=== PATIENT | female | born 1960 | race Caucasian/White ===

== ENCOUNTER → 2016-12-14 | Outpatient (CLI) | payer MEDICARE, OTHER ==
[~2016-12-14] MED LIST: BACL10TA PO; ESOM10SU PO; GABA-585 PO; TRAZ50TA15 PO
--- NOTE | 2016-12-14 15:44 | KCIC ---
DATE: 12/14/2016 EXAM: MAMMO LINDA SCREENING BILATERAL HISTORY: Screening COMPARISON: No prior imaging of the right breast is available. Note is made of previous images of the left breast 05/31/2012 FINDINGS: Breast Density: FATTY The Breast Parenchyma is primarily fatty replaced. Breast parenchyma level density A.. There are small well-defined masses in the left breast likely reflecting intramammary lymph nodes. A dominant mass is not seen in either breast. No suspect calcifications are seen. Lymph nodes are noted in both axilla. IMPRESSION: Benign findings. BI-RADS CATEGORY: 2 BENIGN FINDING(S) RECOMMENDED FOLLOW-UP: 12M 12 MONTH FOLLOW-UP PQRS compliance statement: Patient information was entered into a reminder system with a target due date 12/14/2017 for the next mammogram. Mammography is a sensitive method for finding small breast cancers, but it does not detect them all and is not a substitute for careful clinical examination. A negative mammogram does not negate a clinically suspicious finding and should not result in delay in biopsying a clinically suspicious abnormality. "Our facility is accredited by the [employer] Mammography Program."
== END | disposition home or self-care (01) ==
LOC: KCIC MAMMO 14:00
PROVIDERS: ATTEND Family Medicine
DX: Z12.31 Encounter for screening mammogram for malignant neoplasm of breast (principal)
CPT/HCPCS: 77063; G0202; 77067

== ENCOUNTER 2019-12-06 23:20 | Emergency (ER) | payer MEDICARE, OTHER ==
[~2019-12-06] VITALS: Ht 172.7 cm; Wt 110.0 kg
[~2019-12-06 23:20] MED LIST changes: +TRAZ-118 PO; -TRAZ50TA15 PO
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
[2019-12-07] MEDS ORDERED: IV NORMAL SALINE 1000ML BAG 1,000 ML IV ONE
[2019-12-07 00:11] LABS: BASO # 0.1 x10^3/uL (0.0-0.2); BASO % 1 % (0-3); EOS # 0.2 x10^3/uL (0.0-0.7); EOS % 2 % (0-3); HEMATOCRIT 35.1 % (36.0-47.0); HEMOGLOBIN 11.5 g/dL (12.0-15.5); LYMPH # 1.8 x10^3/uL (1.0-4.8); LYMPH % 24 % (24-48); MEAN CORPUSCULAR HEMOGLOBIN 27 pg (25-35); MEAN CORPUSCULAR HGB CONC 33 g/dL (31-37); MEAN CORPUSCULAR VOLUME 83 fL (79-100); MONO % 13 % (0-9); NEUT # 4.7 x10^3/uL (1.8-7.7); NEUT % 61 % (31-73); PLATELET COUNT 219 x10^3/uL (140-400); RED BLOOD COUNT 4.26 x10^6/uL (3.50-5.40); RED CELL DISTRIBUTION WIDTH 16.6 % (11.5-14.5); WHITE BLOOD COUNT 7.7 x10^3/uL (4.0-11.0)
[2019-12-07 00:13] LABS: BILIRUBIN,URINE NEGATIVE (NEG); CLARITY,URINE CLEAR; COLOR,URINE YELLOW; NITRITE,URINE NEGATIVE (NEG); PH,URINE 6.5 (<5.0-8.0); PROTEIN,URINE NEGATIVE (NEG-TRACE)
[2019-12-07 00:24] LABS: BACTERIA,URINE FEW /HPF (0-FEW); RBC,URINE 0 /HPF (0-2); SQUAMOUS EPITHELIAL CELL,UR FEW /LPF
[2019-12-07 01:34] LABS: CALCIUM 8.8 mg/dL (8.5-10.1); CREATININE 0.8 mg/dL (0.6-1.0); GFR 73.7; POTASSIUM 4.1 mmol/L (3.5-5.1)
[2019-12-07 01:49] LABS: ALBUMIN/GLOBULIN RATIO 0.8 (1.0-1.7); MAGNESIUM 2.2 mg/dL (1.8-2.4); TOTAL BILIRUBIN 0.3 mg/dL (0.2-1.0); TOTAL PROTEIN 6.7 g/dL (6.4-8.2)
[2019-12-07 02:32] VITALS: BP 157/67
--- NOTE | 2019-12-07 07:28 | EKG ---
[facility] [address] [place] [address] Test Date: 2019-12-06 Test Time: 23:41:46 Pat Name: SEAN LEPE Department: Room: Gender: F Cena: : 1960 Requested By: NILESH PAGAN Order Number: [id number] Reading MD: Measurements Intervals [place] Rate: 53 P: HI: QRS: 35 QRSD: 80 T: 30 QT: 424 QTc: 404 Interpretive Statements IRREGULAR RHYTHM, NO P-WAVE FOUND OTHERWISE NORMAL ECG RI6.02 No previous ECG available for comparison
== END 2019-12-07 02:35 | disposition home or self-care (01) ==
LOC: ER 23:20
DX: R19.7 Diarrhea, unspecified (principal); R53.1 Weakness; R11.0 Nausea; J44.9 Chronic obstructive pulmonary disease, unspecified; R25.1 Tremor, unspecified; E11.9 Type 2 diabetes mellitus without complications; K21.9 Gastro-esophageal reflux disease without esophagitis; Z90.89 Acquired absence of other organs; Z90.710 Acquired absence of both cervix and uterus; Z79.01 Long term (current) use of anticoagulants; Z88.5 Allergy status to narcotic agent
CPT/HCPCS: 36415; 80053; 81001; 83735; 85025; 87493; 93005; 96360; 96361; 99285; J7030

== ENCOUNTER 2020-01-13 19:12 | Inpatient (IN) | payer MEDICARE, OTHER ==
[~2020-01-13] VITALS: Ht 175.3 cm; Wt 124.0 kg
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
--- NOTE | 2020-01-13 20:06 | RAD ---
Exam: Chest one view INDICATION: Chest pain TECHNIQUE: Frontal view of the chest Comparisons: 05/04/2013 FINDINGS: The cardiomediastinal silhouette and pulmonary vessels are within normal limits. The lung and pleural spaces are clear. IMPRESSION: No acute cardiopulmonary process. Electronically signed by: Silvia Hunter MD (01/13/2020 8:03 PM) JAMIE
[2020-01-13 20:55] LABS: BASO % 1 % (0-3); EOS # 0.2 x10^3/uL (0.0-0.7); EOS % 3 % (0-3); HEMATOCRIT 34.3 % (36.0-47.0); HEMOGLOBIN 11.5 g/dL (12.0-15.5); LYMPH # 2.1 x10^3/uL (1.0-4.8); LYMPH % 33 % (24-48); MEAN CORPUSCULAR HEMOGLOBIN 27 pg (25-35); MEAN CORPUSCULAR HGB CONC 33 g/dL (31-37); MEAN CORPUSCULAR VOLUME 81 fL (79-100); MONO # 0.7 x10^3/uL (0.0-1.1); MONO % 10 % (0-9); NEUT # 3.4 x10^3/uL (1.8-7.7); NEUT % 54 % (31-73); PLATELET COUNT 212 x10^3/uL (140-400); RED BLOOD COUNT 4.24 x10^6/uL (3.50-5.40); RED CELL DISTRIBUTION WIDTH 16.1 % (11.5-14.5); WHITE BLOOD COUNT 6.3 x10^3/uL (4.0-11.0)
[2020-01-13 21:04] LABS: CALCIUM 8.6 mg/dL (8.5-10.1); CREATININE 0.7 mg/dL (0.6-1.0); GFR 85.9; POTASSIUM 3.4 mmol/L (3.5-5.1)
[2020-01-13 21:07] LABS: PROTHROMBIN TIME PATIENT 13.7 SEC (11.7-14.0)
[2020-01-13 21:10] LABS: MAGNESIUM 1.8 mg/dL (1.8-2.4); TOTAL BILIRUBIN 0.3 mg/dL (0.2-1.0); TOTAL PROTEIN 6.1 g/dL (6.4-8.2)
[2020-01-13 21:24] LABS: CREATINE KINASE 58 U/L (26-192)
[2020-01-13 21:42] LABS: BILIRUBIN,URINE NEGATIVE (NEG); CLARITY,URINE CLEAR; COLOR,URINE YELLOW; NITRITE,URINE NEGATIVE (NEG); PROTEIN,URINE NEGATIVE (NEG-TRACE)
[2020-01-13 21:49] LABS: AMORPHOUS SEDIMENT,UR PRESENT /HPF; BACTERIA,URINE 0 /HPF (0-FEW); WBC,URINE TNTC /HPF (0-4)
[2020-01-13] MEDS ORDERED: ONDANSETRON PF 4 MG/2 ML VIAL. IVP PRN (23:30)
[2020-01-13] MEDS ORDERED: CALCIUM CARBONATE 500 MG TAB.CHEW PO PRN (23:30)
[2020-01-13] MEDS ORDERED: MAG HYDROX/ALUMINUM HYD/SIMETH 30 ML ORAL.SUSP PO PRN (23:30)
[2020-01-13] MEDS ORDERED: hydrOXYzine 25 MG TABLET PO PRN (23:30)
[2020-01-13] MEDS ORDERED: BISACODYL 10 MG SUPP.RECT. PR PRN (23:30)
[2020-01-13] MEDS ORDERED: MAGNESIUM HYDROXIDE 2,400 MG/30 ML ORAL.SUSP. PO PRN (23:30)
[2020-01-13] MEDS ORDERED: IBUPROFEN 400 MG TABLET. PO PRN (23:30)
[2020-01-13] MEDS ORDERED: ACETAMINOPHEN 325 MG TABLET. PO PRN (23:30)
[2020-01-13] MEDS ORDERED: HYDROmorphone 2 MG/ML VIAL IV PRN ×2 (23:30)
[2020-01-13] MEDS ORDERED: KETOROLAC 15 MG/ML VIAL. IV PRN (23:30)
[2020-01-13] MEDS ORDERED: PROCHLORPERAZINE 10 MG/2 ML VIAL. IVP PRN (23:30)
[2020-01-14 02:40] VITALS: BP 138/52
[2020-01-14] MEDS ORDERED: DEXTROSE 50% 25 GM / 50ML DISP.SYRIN. IV PRN (07:30)
[2020-01-14] MEDS ORDERED: POTASSIUM BICARB 10 MEQ EFFERVESCENT TABLET. PO ONE (07:30)
[2020-01-14] MEDS ORDERED: guaiFENesin DM 200MG/20MG 10 ML SYRUP PO PRN (07:30)
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
[2020-01-14 07:39] LABS: CHOLESTEROL/HDL RATIO 3.9
[2020-01-14 07:48] LABS: CALCIUM 8.6 mg/dL (8.5-10.1); CREATININE 0.7 mg/dL (0.6-1.0); GFR 85.9; MAGNESIUM 2.1 mg/dL (1.8-2.4); POTASSIUM 3.8 mmol/L (3.5-5.1)
[2020-01-14 07:49] VITALS: BP 120/44
[2020-01-14] MEDS: INSULIN LISPRO 300 UNITS/3 ML VIAL. SQ SCH ×3 (08:00→17:00)
[2020-01-14] MEDS: IPRATRPIUM/ALBUTEROL 0.5/2.5MG 3 ML NEBU. NEB SCH ×4 (08:00→20:27)
[2020-01-14] MEDS: GABAPENTIN 100 MG CAPSULE. PO SCH ×4 (10:44→21:38)
[2020-01-14] MEDS: PANTOPRAZOLE 40 MG TABLET.DR. PO SCH (10:45)
[2020-01-14] MEDS: ENOXAPARIN 40 MG/0.4 ML SYRINGE. SQ SCH (10:46)
[2020-01-14 10:49] VITALS: BP 122/50
--- NOTE | 2020-01-14 11:14 | PDOC2 ---
KRYSTA CORDERO RICE DRIER OPERATOR 01/14/20 1114: CARDIAC CONSULT DATE OF CONSULT Date of Consult DATE: 01/14/20 TIME: 11:00 REASON FOR CONSULT Reason for Consult: bradycardia, a-flutter REFERRING PHYSICIAN Referring Physician: Dr. Rdz SOURCE Source: Chart review, Patient HISTORY OF PRESENT ILLNESS HISTORY OF PRESENT ILLNESS This is a 59 yo female who presented secondary to generalized weakness, body aches, productive cough with yellow-green sputum, shortness of breath, and fevers. PAST MEDICAL HISTORY Past Medical History Liver disease (suspected cirrhosis) secondary to NAJERA Obesity s/p gastric bypass DM HLP HTN JOSE on CPAP MDD Bipolar GERD TBI Peripheral neuropathy OA Asthma Cardiovascular: HTN, Hyperlipidemia Pulmonary: Asthma, COPD, Other (JOSE) CENTRAL NERVOUS SYSTEM: Periperal neuropathy, Seizure, Other (TBI) GI: GERD Hepatobiliary: Cirrhosis (NAJERA) Psych: Anxiety, Depression, Other (boarderline personality disorde) Musculoskeletal: Osteoarthritis Endocrine: Diabetes PAST SURGICAL HISTORY Past Surgical History: Hysterectomy, Other (gastric bypass ) CURRENT MEDICATIONS CURRENT MEDICATIONS Current Medications Medications (Trade) Dose Ordered Sig/Jonel Route PRN Reason Start Time Stop Time Status Last Admin Dose Admin Gabapentin (Neurontin) 100 mg TID PO 01/14/20 09:00 01/14/20 10:44 Pantoprazole Sodium (Protonix) 40 mg DAILYAC PO 01/14/20 07:30 01/14/20 10:45 Potassium Bicarbonate (Potassium Effervescent Tablet) 40 meq 1X ONCE PO 01/14/20 07:30 01/14/20 07:31 DC 01/14/20 10:45 Enoxaparin Sodium (Lovenox 40mg Syringe) 40 mg Q24H SQ 01/14/20 09:00 01/14/20 10:46 ALLERGIES ALLERGIES: Coded Allergies: morphine (Verified Allergy, Intermediate, 09/24/14) sulfamethoxazole (Verified Allergy, Unknown, Rash, 01/14/20) trimethoprim (Verified Allergy, Unknown, Rash, 01/14/20) ROS Review of System 14 point ROS conducted with pertinent positives noted above in HPI PHYSICAL EXAM General: Alert, Cooperative, No acute distress, Other (oriented to self only) HEENT: Atraumatic Lungs: Clear to auscultation Heart: Regular rate (SR/SB) Abdomen: Soft, No tenderness, Other (obese ) Extremities: No edema Neuro: Normal speech, Sensation intact Psych/Mental Status: Other (flat affect ) MUSCULOSKELETAL: Osteoarthritic changes both hands VITALS/I&O VITALS/I&O: Vital Signs Date Time Temp Pulse Resp B/P (MAP) Pulse Ox O2 Delivery O2 Flow Rate FiO2 01/14/20 10:49 97.8 60 18 122/50 (74) 95 Room Air 97.8 01/14/20 07:49 94.0 I & O 01/13/20 01/13/20 01/14/20 15:00 23:00 07:00 Intake Total 0 ml Balance 0 ml LABS Lab: Laboratory Tests Test 01/13/20 20:40 01/13/20 21:30 01/14/20 00:02 01/14/20 00:20 White Blood Count 6.3 x10^3/uL (4.0-11.0) Red Blood Count 4.24 x10^6/uL (3.50-5.40) Hemoglobin 11.5 g/dL (12.0-15.5) L Hematocrit 34.3 % (36.0-47.0) L Mean Corpuscular Volume 81 fL (79-100) Mean Corpuscular Hemoglobin 27 pg (25-35) Mean Corpuscular Hemoglobin Concent 33 g/dL (31-37) Red Cell Distribution Width 16.1 % (11.5-14.5) H Platelet Count 212 x10^3/uL (140-400) Neutrophils (%) (Auto) 54 % (31-73) Lymphocytes (%) (Auto) 33 % (24-48) Monocytes (%) (Auto) 10 % (0-9) H Eosinophils (%) (Auto) 3 % (0-3) Basophils (%) (Auto) 1 % (0-3) Neutrophils # (Auto) 3.4 x10^3/uL (1.8-7.7) Lymphocytes # (Auto) 2.1 x10^3/uL (1.0-4.8) Monocytes # (Auto) 0.7 x10^3/uL (0.0-1.1) Eosinophils # (Auto) 0.2 x10^3/uL (0.0-0.7) Basophils # (Auto) 0.0 x10^3/uL (0.0-0.2) Prothrombin Time 13.7 SEC (11.7-14.0) Prothrombin Time INR 1.1 (0.8-1.1) Activated Partial Thromboplast Time 25 SEC (24-38) Sodium Level 140 mmol/L (136-145) Potassium Level 3.4 mmol/L (3.5-5.1) L Chloride Level 102 mmol/L (98-107) Carbon Dioxide Level 31 mmol/L (21-32) Anion Gap 7 (6-14) Blood Urea Nitrogen 3 mg/dL (7-20) L Creatinine 0.7 mg/dL (0.6-1.0) Estimated GFR (Cockcroft-Gault) 85.9 BUN/Creatinine Ratio 4 (6-20) L Glucose Level 104 mg/dL (70-99) H Calcium Level 8.6 mg/dL (8.5-10.1) Magnesium Level 1.8 mg/dL (1.8-2.4) Total Bilirubin 0.3 mg/dL (0.2-1.0) Aspartate Amino Transferase (AST) 22 U/L (15-37) Alanine Aminotransferase (ALT) 22 U/L (14-59) Alkaline Phosphatase 80 U/L (46-116) Creatine Kinase 58 U/L (26-192) Creatine Kinase MB (Mass) < 0.5 ng/mL (0.0-3.6) Creatine Kinase MB Relative Index % (0-4) Troponin I Quantitative 0.070 ng/mL (0.000-0.055) 0.063 ng/mL (0.000-0.055) IH-Aom-G-Type Natriuretic Peptide 391 pg/mL (0-124) H Total Protein 6.1 g/dL (6.4-8.2) L Albumin 3.0 g/dL (3.4-5.0) L Albumin/Globulin Ratio 1.0 (1.0-1.7) Lipase 64 U/L (73-393) L Urine Collection Type U cath Urine Color Yellow Urine Clarity Clear Urine pH 6.0 (<5.0-8.0) Urine Specific [place] 1.010 (1.000-1.030) Urine Protein Negative mg/dL (NEG-TRACE) Urine Glucose (UA) Negative mg/dL (NEG) Urine Ketones (Stick) Negative mg/dL (NEG) Urine Blood Moderate (NEG) Urine Nitrite Negative (NEG) Urine Bilirubin Negative (NEG) Urine Urobilinogen Dipstick 1.0 mg/dL (0.2 mg/dL) Urine Leukocyte Esterase Moderate (NEG) Urine RBC 11-20 /HPF (0-2) Urine WBC Tntc /HPF (0-4) Urine Squamous Epithelial Cells Mod /LPF Urine Amorphous Sediment Present /HPF Urine Bacteria 0 /HPF (0-FEW) Urine Mucus Slight /LPF Glucose (Fingerstick) 100 mg/dL (70-99) H Test 01/14/20 06:40 Sodium Level 137 mmol/L (136-145) Potassium Level 3.8 mmol/L (3.5-5.1) Chloride Level 101 mmol/L (98-107) Carbon Dioxide Level 28 mmol/L (21-32) Anion Gap 8 (6-14) Blood Urea Nitrogen 4 mg/dL (7-20) L Creatinine 0.7 mg/dL (0.6-1.0) Estimated GFR (Cockcroft-Gault) 85.9 Glucose Level 107 mg/dL (70-99) H Calcium Level 8.6 mg/dL (8.5-10.1) Magnesium Level 2.1 mg/dL (1.8-2.4) Troponin I Quantitative 0.064 ng/mL (0.000-0.055) Triglycerides Level 129 mg/dL (0-150) Cholesterol Level 144 mg/dL (0-200) LDL Cholesterol, Calculated 81 mg/dL (0-100) VLDL Cholesterol, Calculated 26 mg/dL (0-40) Non-HDL Cholesterol Calculated 107 mg/dL (0-129) HDL Cholesterol 37 mg/dL (40-60) L Cholesterol/HDL Ratio 3.9 Laboratory Tests 01/13/20 20:40 Laboratory Tests 01/13/20 20:40 01/14/20 06:40 EKG EKG Interpretation Summary The patient was monitored for 14 days to evaluate sinus bradycardia. During the recording the underlying rhythm was sinus, rate 37-144, average 59 bpm. There were no diary entries. There were rare PAC's and rare PVC's. There was an episode of sinus bradycardia with ventricular bigeminy. The sinus beats were at a rate of 27 bpm. The duration of this episode can't be determined. There was one 4-beat VT run, rate 150 bpm. There was a second VT run of 10 beats (4.6 seconds) rate variable but averaging 128 bpm. There were 19 runs of PAT, the longest 10 beats in duration, rate approximately 130 bpm. CONCLUSION: Mild sinus node dysfunction, but no symptoms. Episodes of paroxysmal atrial tachycardia that are asymptomatic. These are fairly non- specific findings that don't necessarily require treatment in the absence of symptoms. 12/12/19 - LONG-TERM BIZTALK DEVELOPER ECHOCARDIOGRAM ECHOCARDIOGRAM Study quality was limited due to suboptimal echo windows especially in the parasternal views. Definity contrast was given to define LV endocardium but valve structures were still seen in limited views only Normal LV size and systolic function. LVEF is 65%. The rhythm was ventricular bigeminy throughout the study. Thus LV diastolic function could not be assessed Normal right ventricular size and systolic function. The RV was seen only limited views Overall no significant functional valvular abnormalities were noted. Valve structures could only be seen in limited views. There appears to be mild mitral annular calcification Normal central venous pressure Unable assess pulmonary artery systolic pressure No pericardial effusion No significant change compared to study from 201811/28/19 - 2D + DOPPLER ECHO ASSESSMENT/PLAN ASSESSMENT/PLAN 1. Weakness. fatigue. 2. Arrhythmia; ? paroxysmal a-flutter noted on tele. Suspect this only appears to be a-flutter, due to underlying tremor, but patient is actually SR 3. Bradycardia; lowest 42. No pauses. Appropriate chronotropic response. Recent event monitor at noted above 4. Metabolic encephalopathy; presently confused. Baseline unknown, but does live at home alone 5. Hypertension; controlled 6. Hyperlipidemia; statin 7. Diabetes, II; as per IM 8. Mild troponin elevation; highest 0.07 9. JOSE 10. Liver disease suspected due to NAJERA 11. Obesity s/p gastric bypass 12. Anxiety, depression, personality disorder, h/o TBI pe review of [facility] records Recommendations TSH, Mg Avoid AV keegan blocking agents Supportive care Follow up with Dr. Radha LIZARRAGA upon discharge LUISA DE PAZ MD 01/14/20 194: CARDIAC CONSULT ASSESSMENT/PLAN ASSESSMENT/PLAN Pt. seen and examined. Agree with above URBAN SOCIOLOGIST note. Supportive care. Reviewed OSH records. KRYSTA CORDERO APRN Jan 14, 2020 11:14 LUISA DE PAZ MD Jan 14, 2020 19:42
[2020-01-14] MEDS: BUDESONIDE 0.5 MG/2 ML NEBU. NEB SCH ×2 (11:27→20:27)
[2020-01-14 14:32] VITALS: BP 136/75
--- NOTE | 2020-01-14 14:35 | NUR ---
SS following for discharge planning. SS reviewed pt chart and discussed with pt RN. Pt is from home and is currently on room air. Pt having weakness and confusion. PT/OT orders requested. Probable alf need. COVID19 test requested for placement. SS will continue to follow for discharge planning.
[2020-01-14] MEDS ORDERED: LACTULOSE 20 GM/30 ML SOLUTION. PO PRN (15:00)
[2020-01-14 15:03] LABS: VAL ACID 92 mcg/mL (50-100)
[2020-01-14] MEDS: OLANZapine 5 MG TABLET PO SCH (17:27)
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
[2020-01-14 19:16] VITALS: BP 128/53
[2020-01-14] MEDS: traZODone 50 MG TABLET. PO SCH ×2 (20:52→21:38)
[2020-01-14 22:10] VITALS: BP 157/63
[2020-01-15 03:49] LABS: BASO % 1 % (0-3); EOS # 0.1 x10^3/uL (0.0-0.7); EOS % 2 % (0-3); HEMATOCRIT 32.8 % (36.0-47.0); HEMOGLOBIN 10.7 g/dL (12.0-15.5); LYMPH # 2.1 x10^3/uL (1.0-4.8); LYMPH % 42 % (24-48); MEAN CORPUSCULAR HEMOGLOBIN 26 pg (25-35); MEAN CORPUSCULAR HGB CONC 33 g/dL (31-37); MEAN CORPUSCULAR VOLUME 81 fL (79-100); MONO # 0.3 x10^3/uL (0.0-1.1); MONO % 7 % (0-9); NEUT # 2.4 x10^3/uL (1.8-7.7); NEUT % 48 % (31-73); PLATELET COUNT 190 x10^3/uL (140-400); RED BLOOD COUNT 4.06 x10^6/uL (3.50-5.40); RED CELL DISTRIBUTION WIDTH 16.1 % (11.5-14.5)
[2020-01-15 03:56] VITALS: BP 132/58
[2020-01-15 03:59] LABS: CALCIUM 8.6 mg/dL (8.5-10.1); CREATININE 0.7 mg/dL (0.6-1.0); GFR 85.9; POTASSIUM 3.6 mmol/L (3.5-5.1)
--- NOTE | 2020-01-15 06:20 | EKG ---
[facility] [address] [place] [address] Test Date: 2020-01-13 Test Time: 20:01:21 Pat Name: SEAN LEPE Department: Room: Gender: F [employer]: : 1960 Requested By: NEIL SOW Order Number: [id number] Reading MD: Measurements Intervals [place] Rate: 50 P: 34 ND: 138 QRS: 32 QRSD: 86 T: 15 QT: 450 QTc: 413 Interpretive Statements SINUS RHYTHM NORMAL ECG RI6.02 Compared to ECG 01/13/2020 20:00:00 No significant changes
[2020-01-15 07:00] VITALS: BP 148/57
[2020-01-15] MEDS: BUDESONIDE 0.5 MG/2 ML NEBU. NEB SCH (07:39)
[2020-01-15] MEDS: IPRATRPIUM/ALBUTEROL 0.5/2.5MG 3 ML NEBU. NEB SCH ×3 (07:39→15:48)
--- NOTE | 2020-01-15 07:58 | PDOC ---
[employer] PROGRESS NOTE Date of Service DOS: DATE: 01/15/20 TIME: 07:56 Chief Complaint Chief Complaint A/P: Acute encephalopathy - likely metabolic from recent psych medication change. Will check depakote level, consult psych, monitor for hypoglycemia Elevated troponin - likely demand ischemia, will consult cardiology, trend troponins Cough - mild COPD exacerbation, nebs Weakness - will have PT to see PTSD with Anxiety and possible dx of bipolar disorder - check depakote level, reconcile meds with [facility] including depakote and zyprexa Asthma with COPD - nebulizers Liver disease (suspected cirrhosis) secondary to NAJERA - norah give lactulose, check ammonia level Obesity s/p gastric bypass - will check B12, D DM2 - sliding scale HLD - cont statin HTN - cont home meds JOSE on CPAP - will get home device GERD - PPI h/o TBI - per [facility] records, unknown mental baseline Peripheral neuropathy - gabapentin OA - avoid narcotics Vitamin D deficiency - on oral replacement FEN - ADA diet PPX - lovenox FULL CODE Dispo - inpatient History of Present Illness History of Present Illness Ms Soler is a 59 yo F w/ PMHx Anxiety, COPD, Diabetes-Type II, GERD, Seizure who presents to the emergency department with complaints of generalized weakness, fatigue, and body aches for the last few days with a productive cough with yellow-green sputum, shortness of breath, and a tactile fever. She denies any recent travel, she denies any known contact with COVID-19. Patient states she did not use a thermometer to measure her temperature. She denies any rash, dizziness, headache, abdominal pain, nausea, vomiting, diarrhea, sore throat, wheezing, or edema. The patient reports she has noticed some increased urinary frequency but denies any dysuria, hematuria, or low back pain. She currently complains of generalized pain that she rated 9 out of 10 on the pain scale, she denies any alleviating or exacerbating factors. Lab significant for WBC 6.3, Hb 11.5, platelets 212, INR 1.1, Na 143.4 BUN 3 CR 0.7 glucose 104 albumin 3 BNP 391 troponin 0.07 CXR - no acute abnormalities EKG - NSR x3 EKG, sinus bradycardia, normal axis, no ST segment abnormalities or TWI Feeling overall improved. Depakote level therapeutic. She is oriented to person and location, believes the year is 1999, but does know that she is 59 years old and knows her birthdate and is eventually able to mathematically calculate that the year is 2019 and is accurate about the current president. No CP or SOB. Vitals/I&O Vitals/I&O: Vital Signs Date Time Temp Pulse Resp B/P (MAP) Pulse Ox O2 Delivery O2 Flow Rate FiO2 01/15/20 07:41 96 Room Air 01/15/20 03:56 97.7 50 16 132/58 (82) 2.0 97.7 I & O 01/14/20 01/14/20 01/15/20 15:00 23:00 07:00 Intake Total 600 ml 2800 ml 440 ml Output Total 1500 ml 350 ml Balance 600 ml 1300 ml 90 ml Physical Exam General: Alert, Cooperative, No acute distress, Other (oriented to self only) Heart: Regular rate (SR/SB) Abdomen: Soft, No tenderness, Other (obese ) Extremities: No edema Skin: No rashes, No breakdown, No significant lesion Labs Labs: Laboratory Tests Test 01/14/20 11:04 01/14/20 12:40 01/14/20 16:45 01/14/20 20:12 Glucose (Fingerstick) 218 mg/dL (70-99) 94 mg/dL (70-99) 156 mg/dL (70-99) Troponin I Quantitative 0.072 ng/mL (0.000-0.055) Vitamin B12 Level 436 pg/mL (247-911) Procalcitonin < 0.10 ng/mL (0.00-0.10) Thyroid Stimulating Hormone (TSH) 1.643 uIU/mL (0.358-3.74) Valproic Acid (Depakene) Level 92 mcg/mL (50-100) Valproic Acid Last Dose Date 01/13/20 Valproic Acid Last Dose Time 2100 Test 01/15/20 03:30 White Blood Count 5.0 x10^3/uL (4.0-11.0) Red Blood Count 4.06 x10^6/uL (3.50-5.40) Hemoglobin 10.7 g/dL (12.0-15.5) Hematocrit 32.8 % (36.0-47.0) Mean Corpuscular Volume 81 fL (79-100) Mean Corpuscular Hemoglobin 26 pg (25-35) Mean Corpuscular Hemoglobin Concent 33 g/dL (31-37) Red Cell Distribution Width 16.1 % (11.5-14.5) Platelet Count 190 x10^3/uL (140-400) Neutrophils (%) (Auto) 48 % (31-73) Lymphocytes (%) (Auto) 42 % (24-48) Monocytes (%) (Auto) 7 % (0-9) Eosinophils (%) (Auto) 2 % (0-3) Basophils (%) (Auto) 1 % (0-3) Neutrophils # (Auto) 2.4 x10^3/uL (1.8-7.7) Lymphocytes # (Auto) 2.1 x10^3/uL (1.0-4.8) Monocytes # (Auto) 0.3 x10^3/uL (0.0-1.1) Eosinophils # (Auto) 0.1 x10^3/uL (0.0-0.7) Basophils # (Auto) 0.0 x10^3/uL (0.0-0.2) Sodium Level 137 mmol/L (136-145) Potassium Level 3.6 mmol/L (3.5-5.1) Chloride Level 100 mmol/L (98-107) Carbon Dioxide Level 32 mmol/L (21-32) Anion Gap 5 (6-14) Blood Urea Nitrogen 6 mg/dL (7-20) Creatinine 0.7 mg/dL (0.6-1.0) Estimated GFR (Cockcroft-Gault) 85.9 Glucose Level 103 mg/dL (70-99) Calcium Level 8.6 mg/dL (8.5-10.1) Ammonia 13 mcmol/L (11-34) 25-Hydroxy Vitamin D Total 18.1 ng/mL (30-100) Assessment and Plan Assessmemt and Plan Problems Medical Problems: (1) Diarrhea Status: Acute Comment Review of Relevant I have reviewed the following items lashay (where applicable) has been applied. Medications: Current Medications Medications (Trade) Dose Ordered Sig/Jonel Route PRN Reason Start Time Stop Time Status Last Admin Dose Admin Gabapentin (Neurontin) 100 mg TID PO 01/14/20 09:00 01/14/20 21:38 Trazodone HCl (Desyrel) 50 mg QHS PO 01/14/20 21:00 01/14/20 21:38 Insulin Human Lispro (HumaLOG) 0-7 UNITS TIDWMEALS SQ 01/14/20 08:00 01/14/20 13:07 Albuterol/ Ipratropium (Duoneb) 3 ml RTQID NEB 01/14/20 08:00 01/15/20 07:39 Budesonide (Pulmicort) 0.5 mg RTBID NEB 01/14/20 08:00 01/15/20 07:39 Enoxaparin Sodium (Lovenox 40mg Syringe) 40 mg Q24H SQ 01/14/20 09:00 01/14/20 10:46 Olanzapine (ZyPREXA) 5 mg DAILY PO 01/14/20 17:15 01/14/20 17:27 Justifications for Admission Other Justification ACS MICHAEL RAI MD Jan 15, 2020 07:57
[2020-01-15] MEDS ORDERED: POTASSIUM CHLORIDE 20 MEQ TABLET.ER. PO ONE (08:00)
[2020-01-15] MEDS: INSULIN LISPRO 300 UNITS/3 ML VIAL. SQ SCH ×2 (08:00→12:41)
[2020-01-15] MEDS: OLANZapine 5 MG TABLET PO SCH (08:47)
[2020-01-15] MEDS: GABAPENTIN 100 MG CAPSULE. PO SCH ×2 (08:47→12:36)
[2020-01-15] MEDS: PANTOPRAZOLE 40 MG TABLET.DR. PO SCH (08:47)
[2020-01-15] MEDS: ENOXAPARIN 40 MG/0.4 ML SYRINGE. SQ SCH (08:57)
[2020-01-15] MEDS ORDERED: CHOLECALCIFEROL (VITAMIN D3) 5,000 UNIT CAPSULE PO SCH (09:00)
[2020-01-15 11:00] VITALS: BP 144/72
--- NOTE | 2020-01-15 14:31 | PDOC ---
CLOVIS PEDRO REFINING MACHINE OPERATOR 01/15/20 1431: CARDIO Progress Notes Date and Time Date of Service 01/15/2020 Time of Evaluation 1425 Subjective Subjective: No Chest Pain, No shortness of breath, No Palpitations Vitals Vitals Vital Signs Date Time Temp Pulse Resp B/P (MAP) Pulse Ox O2 Delivery O2 Flow Rate FiO2 01/15/20 11:30 Room Air 01/15/20 11:00 97.5 71 16 144/72 (96) 94 97.5 01/15/20 03:56 2.0 Weight Weight [ ] Input and Output Intake and Output Intake and Output 01/15/20 07:00 Intake Total 3840 ml Output Total 1850 ml Balance 1990 ml Intake Oral 3840 ml Output Urine Total 1850 ml # Bowel Movements 2 Laboratory Labs Laboratory Tests Test 01/14/20 16:45 01/14/20 20:12 01/15/20 03:30 01/15/20 08:16 Glucose (Fingerstick) 94 mg/dL (70-99) 156 mg/dL (70-99) 120 mg/dL (70-99) White Blood Count 5.0 x10^3/uL (4.0-11.0) Red Blood Count 4.06 x10^6/uL (3.50-5.40) Hemoglobin 10.7 g/dL (12.0-15.5) Hematocrit 32.8 % (36.0-47.0) Mean Corpuscular Volume 81 fL (79-100) Mean Corpuscular Hemoglobin 26 pg (25-35) Mean Corpuscular Hemoglobin Concent 33 g/dL (31-37) Red Cell Distribution Width 16.1 % (11.5-14.5) Platelet Count 190 x10^3/uL (140-400) Neutrophils (%) (Auto) 48 % (31-73) Lymphocytes (%) (Auto) 42 % (24-48) Monocytes (%) (Auto) 7 % (0-9) Eosinophils (%) (Auto) 2 % (0-3) Basophils (%) (Auto) 1 % (0-3) Neutrophils # (Auto) 2.4 x10^3/uL (1.8-7.7) Lymphocytes # (Auto) 2.1 x10^3/uL (1.0-4.8) Monocytes # (Auto) 0.3 x10^3/uL (0.0-1.1) Eosinophils # (Auto) 0.1 x10^3/uL (0.0-0.7) Basophils # (Auto) 0.0 x10^3/uL (0.0-0.2) Sodium Level 137 mmol/L (136-145) Potassium Level 3.6 mmol/L (3.5-5.1) Chloride Level 100 mmol/L (98-107) Carbon Dioxide Level 32 mmol/L (21-32) Anion Gap 5 (6-14) Blood Urea Nitrogen 6 mg/dL (7-20) Creatinine 0.7 mg/dL (0.6-1.0) Estimated GFR (Cockcroft-Gault) 85.9 Glucose Level 103 mg/dL (70-99) Calcium Level 8.6 mg/dL (8.5-10.1) Ammonia 13 mcmol/L (11-34) 25-Hydroxy Vitamin D Total 18.1 ng/mL (30-100) Test 01/15/20 12:05 Glucose (Fingerstick) 189 mg/dL (70-99) Physical Exam HEENT: Neck Supple W Full Motion Chest: Symmetric LUNGS: Other (diminished bases) Heart: S1S2, RRR (SR/SB) Abdomen: Soft N/T Extremities: No Calf Tenderness Neurology: alert, oriented, follow commands Assessment Assessment 1. Weakness. fatigue. 2. Arrhythmia: no flutter likely artifact from known tremors 3. Bradycardia; lowest 42. No pauses. Appropriate chronotropic response. Recent event monitor at 4. Metabolic encephalopathy; presently confused. Baseline unknown, but does live at home alone 5. Hypertension; controlled 6. Hyperlipidemia; statin 7. Diabetes, II; as per IM 8. Mild troponin elevation; highest 0.07, suspect demand mediated 9. JOSE 10. Liver disease suspected due to NAJERA 11. Obesity s/p gastric bypass 12. Anxiety, depression, personality disorder, h/o TBI per review of records Recommendations No AV keegan blocking agents Supportive care Follow up with Dr. Radah LIZARRAGA upon discharge Justicifation of Admission Dx: Justifications for Admission: Justification of Admission Dx: N/A LUISA DE PAZ MD 01/15/20 1144: CARDIO Progress Notes Plan Plan The patient was seen and interviewed as well as examined at the bedside. The chart was reviewed. The case was discussed. Agree with the plan of care. CLOVIS PEDRO APRN Jan 15, 2020 14:31 LUISA DE PAZ MD Jan 15, 2020 17:44
--- NOTE | 2020-01-15 15:43 | NUR ---
SS following up with discharge planning. SS reviewed pt chart and discussed with pt RN. Pt is currently on room air. PT/OT recommended home with home healthcare. Pt has immigration case manager at [facility]. SS will continue to follow for discharge planning.
[2020-01-15] MEDS ORDERED: DICL150D4 TP (15:57)
[2020-01-15] MEDS ORDERED: ALBU2.5V8 IH (15:57)
[2020-01-15] MEDS ORDERED: PRAM0.255 PO ×2 (15:57)
[2020-01-15] MEDS ORDERED: VALB40CA PO (15:57)
[2020-01-15] MEDS ORDERED: BISM262T9 PO (15:57)
[2020-01-15] MEDS ORDERED: ARIP10TA9 PO (15:57)
[2020-01-15] MEDS ORDERED: METO50TA4 PO (15:57)
[2020-01-15] MEDS ORDERED: GABA600T7 PO (15:57)
[2020-01-15] MEDS ORDERED: PANT20TA2 PO (15:57)
[2020-01-15] MEDS ORDERED: ASPI-630 PO (15:57)
[2020-01-15] MEDS ORDERED: FLUT16SP NS (15:57)
[2020-01-15] MEDS ORDERED: HYDR-2761 PO (15:57)
[2020-01-15] MEDS ORDERED: TRIH5TAB2 PO (15:57)
[2020-01-15] MEDS ORDERED: FLUO40CA2 PO (15:57)
[2020-01-15] MEDS ORDERED: CLONAZEPAM1 MG PO (15:57)
[2020-01-15] MEDS ORDERED: LOPE-101 PO (15:57)
[2020-01-15] MEDS ORDERED: INSU100V37 SQ (15:57)
[2020-01-15] MEDS ORDERED: DIVA-53 PO (15:57)
[2020-01-15] MEDS ORDERED: TRAZ-118 PO (15:57)
[2020-01-15] MEDS ORDERED: DICL100G54 TP ×2 (15:57)
[2020-01-15] MEDS ORDERED: HALO100V IM (15:58)
[2020-01-15] MEDS ORDERED: LOPE2TAB27 PO (15:58)
[2020-01-15] MEDS ORDERED: ONDA4TAB12 PO (15:58)
[2020-01-15] MEDS ORDERED: CHOL500051 PO (16:01)
--- NOTE | 2020-01-15 16:03 | SNU/HH DC ---
DISCHARGE WITH HOME HEALTH DISCHARGE INFORMATION: Discharge Date: Jan 15, 2020 Final Diagnosis: Problems Medical Problems: (1) Diarrhea Status: Acute Condition on Discharge: Stable CODE STATUS: Code Status: Full HOME HEALTH: Face to Face: I certify this patient is under my care and that I, or a nurse practitioner or physician's showroom sales assistant working with me, had a face to face encounter that meets the physician face to face encounter requirements with this patient on 01/15/2020. Medical Complications: COPD, DM, HTN Senior Living For: Assess & Educate Safety, Medication Management RN For Eval/Treatment: Yes Physical Therapy For: Evalulation/Treatment Occupational Therapy For: Evaluation/Treatment Home Health Aide For: Self-care FUEL CONVERSION TECHNICIAN For: Community Resources Pt Meets Homebound Status: Unsteady balance w/ amb,, Poor cognition, Psychological condition POST DISCHARGE ORDERS: Activity Instructions for Disc: Resume previous activity Weight Bearing Status after Di: Full weight bearing DIET AFTER DISCHARGE: Cardiac CHECKS AFTER DISCHARGE: Checks after discharge: Check blood press - daily, Check blood sugar, ac/hs, Check your Temp as needed CERTIFICATION STATEMENT: Certification Statement: Certification Statement: Based on the above finding, I certify that this patient is confined to the home and needs intermittent prison care, physical therapy and/or speech therapy, or continues to need occupational therapy.~ This patient is under my care, and I have initiated the establishment of the plan of care.~ This patient will be followed by myself or a community physician who will periodically review the plan of care. Home Meds Active Scripts Cholecalciferol (Vitamin D3) (Vitamin D3) 125 Mcg Capsule, 5000 UNIT PO DAILY for Vitamin D deficiency for 90 Days, #90 CAP Prov:MICHAEL RAI MD 01/15/20 Reported Medications Haloperidol Decanoate (HALOPERIDOL DECANOATE) 100 Mg/1 Ml Vial, 150 MG IM Q4WK for mood stabilizer, EACH 01/15/20 Ondansetron (ONDANSETRON ODT) 4 Mg Tab.rapdis, 1 TAB PO PRN Q4-6HRS PRN for NAUSEA, #16 TAB 01/15/20 Loperamide Hcl (LOPERAMIDE) 2 Mg Tablet, 1 TAB PO PRN Q2HR PRN for loose stools for 30 Days, TAB 0 Refills 01/15/20 Hydrocodone Bit/Acetaminophen (HYDROCODONE-APAP 5-325 ) 1 Tab Tablet, 1 TAB PO PRN Q6HRS PRN for PAIN, TAB 0 Refills 01/14/20 Diclofenac Sodium (VOLTAREN) 100 Gm Gel..gram., 4 GM TP PRN QHS PRN for PAIN for 30 Days, #1 EACH 0 Refills apply to affected area(s) 20 Diclofenac Sodium (Diclofenac Sodium) 150 Ml Drops, 4 ROSEMARY TP PRN QHS PRN for PAIN for 30 Days, #150 ML 0 Refills 20 Albuterol Sulfate (PROAIR HFA INHALER) 8.5 Gm Hfa.aer.ad, 2 PUFF IH PRN Q6HRS PRN for wheezing for 21 Days, #1 INHALER 0 Refills 1020/20 Diclofenac Sodium (VOLTAREN) 100 Gm Gel..gram., 1 GM TP PRN DAILY PRN for PAIN for 30 Days, #1 EACH 0 Refills apply to affected area(s) 01/15/20 Valbenazine Tosylate (Ingrezza) 40 Mg Capsule, 1 CAP PO DAILY for VMAT2 for 30 Days, #30 CAP 0 Refills 01/14/20 Trihexyphenidyl Hcl (TRIHEXYPHENIDYL HCL) 5 Mg Tablet, 1 TAB PO BID for d, #60 TAB 1 Refill 1020/20 Trazodone Hcl (TRAZODONE HCL) 50 Mg Tablet, 1 TAB PO QHS for insomnia, #30 TAB 1 Refill 1020/20 Metoprolol Succinate (Toprol XL) 50 Mg Tab.er.24h, 25 MG PO DAILY for FOR HYPERTENSION, TAB.SR 1020/20 Pramipexole Di-Hcl (MIRAPEX) 0.25 Mg Tablet, 2 TAB PO QHS for tremors, #90 TAB 1 Refill 1020/20 Pramipexole Di-Hcl (MIRAPEX) 0.25 Mg Tablet, 2 TAB PO QEVNG for parkinsons/tremors, #90 TAB 1 Refill 1020/20 Bismuth Subsalicylate (PEPTO-BISMOL) 262 Mg Tab.chew, 262 MG PO PRN Q4HRS PRN for diarrhea/nausea, TAB.CHEW 1020/20 Pantoprazole Sodium (PROTONIX) 20 Mg Tablet.dr, 2 TAB PO DAILY for GERD, #30 TAB 01/15/20 Insulin Degludec (Tresiba) 100 Unit/1 Ml Vial, 8 UNIT SQ DAILY for DM, EACH 01/15/20 Loperamide HCl (Imodium A-D) 2 Mg Capsule, 2 MG PO PRN DAILY PRN for loose stools, CAP 01/15/20 Gabapentin (GABAPENTIN) 600 Mg Tablet, 600 MG PO TID for NEUROGENIC PAIN, TAB 01/15/20 Fluticasone Propionate (FLUTICASONE PROPIONATE NASAL SPRAY) 16 Gm [place].susp, 2 SPRAY NS DAILY for congestion, #1 INHALER 11 Refills 01/15/20 Fluoxetine Hcl (FLUOXETINE HCL) 40 Mg Capsule, 1 CAP PO DAILYWBKFT for mood stablizer, #30 CAP 2 Refills 01/15/20 Divalproex Sodium (DIVALPROEX SODIUM) 500 Mg Tablet.dr, 3 TAB PO QHS for mood stablizer, #60 TAB 1 Refill 01/15/20 Clonazepam (CLONAZEPAM) 1 Mg Tablet, 0.5 MG PO QHS for FOR ANXIETY, TAB 01/15/20 Aspirin (ASPIRIN) 81 Mg Tab.chew, 1 TAB PO DAILY for prophylaxis , #30 TAB 3 Refills 01/15/20 Aripiprazole (ABILIFY) 10 Mg Tablet, 1 TAB PO QHS for bipolar for 30 Days, #30 TAB 0 Refills 01/15/20 Discontinued Reported Medications Trazodone Hcl (TRAZODONE HCL) 50 Mg Tablet, 50 MG PO 05/04/13 Gabapentin (GABAPENTIN ) 100 Mg Capsule, 100 MG PO 05/04/13 Esomeprazole Magnesium (NEXIUM PACKET) 10 Mg Suspdr.pkt, 10 MG PO 05/04/13 Baclofen (BACLOFEN) 10 Mg Tablet, 10 MG PO 05/04/13 MICHAEL RAI MD Jan 15, 2020 16:03
--- NOTE | 2020-01-15 16:07 | PDOC3 ---
Discharge Summary Visit Information Date of Admission: Jan 14, 2020 Date of Discharge: Jan 15, 2020 Admitting Diagnosis: Weakness Final Diagnosis Problems Medical Problems: (1) Diarrhea Status: Acute Brief Hospital Course Allergies Allergies Coded Allergies Type Severity Reaction Last Updated Verified morphine Allergy Intermediate 09/24/14 Yes sulfamethoxazole Allergy Unknown Rash 01/14/20 Yes trimethoprim Allergy Unknown Rash 01/14/20 Yes Vital Signs Vital Signs Date Time Temp Pulse Resp B/P (MAP) Pulse Ox O2 Delivery O2 Flow Rate FiO2 01/15/20 15:50 91 Room Air 01/15/20 11:00 97.5 71 16 144/72 (96) 97.5 01/15/20 03:56 2.0 Lab Results Laboratory Tests Test 01/13/20 20:40 01/13/20 21:30 01/14/20 00:02 01/14/20 00:20 White Blood Count 6.3 x10^3/uL (4.0-11.0) Red Blood Count 4.24 x10^6/uL (3.50-5.40) Hemoglobin 11.5 g/dL (12.0-15.5) Hematocrit 34.3 % (36.0-47.0) Mean Corpuscular Volume 81 fL (79-100) Mean Corpuscular Hemoglobin 27 pg (25-35) Mean Corpuscular Hemoglobin Concent 33 g/dL (31-37) Red Cell Distribution Width 16.1 % (11.5-14.5) Platelet Count 212 x10^3/uL (140-400) Neutrophils (%) (Auto) 54 % (31-73) Lymphocytes (%) (Auto) 33 % (24-48) Monocytes (%) (Auto) 10 % (0-9) Eosinophils (%) (Auto) 3 % (0-3) Basophils (%) (Auto) 1 % (0-3) Neutrophils # (Auto) 3.4 x10^3/uL (1.8-7.7) Lymphocytes # (Auto) 2.1 x10^3/uL (1.0-4.8) Monocytes # (Auto) 0.7 x10^3/uL (0.0-1.1) Eosinophils # (Auto) 0.2 x10^3/uL (0.0-0.7) Basophils # (Auto) 0.0 x10^3/uL (0.0-0.2) Prothrombin Time 13.7 SEC (11.7-14.0) Prothromb Time International Ratio 1.1 (0.8-1.1) Activated Partial Thromboplast Time 25 SEC (24-38) Sodium Level 140 mmol/L (136-145) Potassium Level 3.4 mmol/L (3.5-5.1) Chloride Level 102 mmol/L (98-107) Carbon Dioxide Level 31 mmol/L (21-32) Anion Gap 7 (6-14) Blood Urea Nitrogen 3 mg/dL (7-20) Creatinine 0.7 mg/dL (0.6-1.0) Estimated GFR (Cockcroft-Gault) 85.9 BUN/Creatinine Ratio 4 (6-20) Glucose Level 104 mg/dL (70-99) Calcium Level 8.6 mg/dL (8.5-10.1) Magnesium Level 1.8 mg/dL (1.8-2.4) Total Bilirubin 0.3 mg/dL (0.2-1.0) Aspartate Amino Transf (AST/SGOT) 22 U/L (15-37) Alanine Aminotransferase (ALT/SGPT) 22 U/L (14-59) Alkaline Phosphatase 80 U/L (46-116) Creatine Kinase 58 U/L (26-192) Creatine Kinase MB (Mass) < 0.5 ng/mL (0.0-3.6) Creatine Kinase MB Relative Index % (0-4) Troponin I Quantitative 0.070 ng/mL (0.000-0.055) 0.063 ng/mL (0.000-0.055) AK-Jcw-Z-Type Natriuretic Peptide 391 pg/mL (0-124) Total Protein 6.1 g/dL (6.4-8.2) Albumin 3.0 g/dL (3.4-5.0) Albumin/Globulin Ratio 1.0 (1.0-1.7) Lipase 64 U/L (73-393) Urine Collection Type U cath Urine Color Yellow Urine Clarity Clear Urine pH 6.0 (<5.0-8.0) Urine Specific [place] 1.010 (1.000-1.030) Urine Protein Negative mg/dL (NEG-TRACE) Urine Glucose (UA) Negative mg/dL (NEG) Urine Ketones (Stick) Negative mg/dL (NEG) Urine Blood Moderate (NEG) Urine Nitrite Negative (NEG) Urine Bilirubin Negative (NEG) Urine Urobilinogen Dipstick 1.0 mg/dL (0.2 mg/dL) Urine Leukocyte Esterase Moderate (NEG) Urine RBC 11-20 /HPF (0-2) Urine WBC Tntc /HPF (0-4) Urine Squamous Epithelial Cells Mod /LPF Urine Amorphous Sediment Present /HPF Urine Bacteria 0 /HPF (0-FEW) Urine Mucus Slight /LPF Glucose (Fingerstick) 100 mg/dL (70-99) Test 01/14/20 06:40 01/14/20 11:04 01/14/20 12:40 01/14/20 16:45 Sodium Level 137 mmol/L (136-145) Potassium Level 3.8 mmol/L (3.5-5.1) Chloride Level 101 mmol/L (98-107) Carbon Dioxide Level 28 mmol/L (21-32) Anion Gap 8 (6-14) Blood Urea Nitrogen 4 mg/dL (7-20) Creatinine 0.7 mg/dL (0.6-1.0) Estimated GFR (Cockcroft-Gault) 85.9 Glucose Level 107 mg/dL (70-99) Calcium Level 8.6 mg/dL (8.5-10.1) Magnesium Level 2.1 mg/dL (1.8-2.4) Troponin I Quantitative 0.064 ng/mL (0.000-0.055) 0.072 ng/mL (0.000-0.055) Triglycerides Level 129 mg/dL (0-150) Cholesterol Level 144 mg/dL (0-200) LDL Cholesterol, Calculated 81 mg/dL (0-100) VLDL Cholesterol, Calculated 26 mg/dL (0-40) Non-HDL Cholesterol Calculated 107 mg/dL (0-129) HDL Cholesterol 37 mg/dL (40-60) Cholesterol/HDL Ratio 3.9 Glucose (Fingerstick) 218 mg/dL (70-99) 94 mg/dL (70-99) Vitamin B12 Level 436 pg/mL (247-911) Procalcitonin < 0.10 ng/mL (0.00-0.10) Thyroid Stimulating Hormone (TSH) 1.643 uIU/mL (0.358-3.74) Valproic Acid (Depakene) Level 92 mcg/mL (50-100) Valproic Acid Last Dose Date 01/13/20 Valproic Acid Last Dose Time 2100 Test 01/14/20 20:12 01/15/20 03:30 01/15/20 08:16 01/15/20 12:05 Glucose (Fingerstick) 156 mg/dL (70-99) 120 mg/dL (70-99) 189 mg/dL (70-99) White Blood Count 5.0 x10^3/uL (4.0-11.0) Red Blood Count 4.06 x10^6/uL (3.50-5.40) Hemoglobin 10.7 g/dL (12.0-15.5) Hematocrit 32.8 % (36.0-47.0) Mean Corpuscular Volume 81 fL (79-100) Mean Corpuscular Hemoglobin 26 pg (25-35) Mean Corpuscular Hemoglobin Concent 33 g/dL (31-37) Red Cell Distribution Width 16.1 % (11.5-14.5) Platelet Count 190 x10^3/uL (140-400) Neutrophils (%) (Auto) 48 % (31-73) Lymphocytes (%) (Auto) 42 % (24-48) Monocytes (%) (Auto) 7 % (0-9) Eosinophils (%) (Auto) 2 % (0-3) Basophils (%) (Auto) 1 % (0-3) Neutrophils # (Auto) 2.4 x10^3/uL (1.8-7.7) Lymphocytes # (Auto) 2.1 x10^3/uL (1.0-4.8) Monocytes # (Auto) 0.3 x10^3/uL (0.0-1.1) Eosinophils # (Auto) 0.1 x10^3/uL (0.0-0.7) Basophils # (Auto) 0.0 x10^3/uL (0.0-0.2) Sodium Level 137 mmol/L (136-145) Potassium Level 3.6 mmol/L (3.5-5.1) Chloride Level 100 mmol/L (98-107) Carbon Dioxide Level 32 mmol/L (21-32) Anion Gap 5 (6-14) Blood Urea Nitrogen 6 mg/dL (7-20) Creatinine 0.7 mg/dL (0.6-1.0) Estimated GFR (Cockcroft-Gault) 85.9 Glucose Level 103 mg/dL (70-99) Calcium Level 8.6 mg/dL (8.5-10.1) Ammonia 13 mcmol/L (11-34) 25-Hydroxy Vitamin D Total 18.1 ng/mL (30-100) Laboratory Tests Test 01/14/20 16:45 01/14/20 20:12 01/15/20 03:30 01/15/20 08:16 Glucose (Fingerstick) 94 mg/dL (70-99) 156 mg/dL (70-99) 120 mg/dL (70-99) White Blood Count 5.0 x10^3/uL (4.0-11.0) Red Blood Count 4.06 x10^6/uL (3.50-5.40) Hemoglobin 10.7 g/dL (12.0-15.5) Hematocrit 32.8 % (36.0-47.0) Mean Corpuscular Volume 81 fL (79-100) Mean Corpuscular Hemoglobin 26 pg (25-35) Mean Corpuscular Hemoglobin Concent 33 g/dL (31-37) Red Cell Distribution Width 16.1 % (11.5-14.5) Platelet Count 190 x10^3/uL (140-400) Neutrophils (%) (Auto) 48 % (31-73) Lymphocytes (%) (Auto) 42 % (24-48) Monocytes (%) (Auto) 7 % (0-9) Eosinophils (%) (Auto) 2 % (0-3) Basophils (%) (Auto) 1 % (0-3) Neutrophils # (Auto) 2.4 x10^3/uL (1.8-7.7) Lymphocytes # (Auto) 2.1 x10^3/uL (1.0-4.8) Monocytes # (Auto) 0.3 x10^3/uL (0.0-1.1) Eosinophils # (Auto) 0.1 x10^3/uL (0.0-0.7) Basophils # (Auto) 0.0 x10^3/uL (0.0-0.2) Sodium Level 137 mmol/L (136-145) Potassium Level 3.6 mmol/L (3.5-5.1) Chloride Level 100 mmol/L (98-107) Carbon Dioxide Level 32 mmol/L (21-32) Anion Gap 5 (6-14) Blood Urea Nitrogen 6 mg/dL (7-20) Creatinine 0.7 mg/dL (0.6-1.0) Estimated GFR (Cockcroft-Gault) 85.9 Glucose Level 103 mg/dL (70-99) Calcium Level 8.6 mg/dL (8.5-10.1) Ammonia 13 mcmol/L (11-34) 25-Hydroxy Vitamin D Total 18.1 ng/mL (30-100) Test 01/15/20 12:05 Glucose (Fingerstick) 189 mg/dL (70-99) Brief Hospital Course Ms Soler is a 59 yo F w/ PMHx Anxiety, COPD, Diabetes-Type II, GERD, Seizure who presents to the emergency department with complaints of generalized weakness, fatigue, and body aches for the last few days with a productive cough with yellow-green sputum, shortness of breath, and a tactile fever. She denies any recent travel, she denies any known contact with COVID-19. Patient states she did not use a thermometer to measure her temperature. She denies any rash, dizziness, headache, abdominal pain, nausea, vomiting, diarrhea, sore throat, wheezing, or edema. The patient reports she has noticed some increased urinary frequency but denies any dysuria, hematuria, or low back pain. She currently complains of generalized pain that she rated 9 out of 10 on the pain scale, she denies any alleviating or exacerbating factors. Lab significant for WBC 6.3, Hb 11.5, platelets 212, INR 1.1, Na 143.4 BUN 3 CR 0.7 glucose 104 albumin 3 BNP 391 troponin 0.07 CXR - no acute abnormalities EKG - NSR x3 EKG, sinus bradycardia, normal axis, no ST segment abnormalities or TWI Feeling overall improved. Depakote level therapeutic. She is oriented to person and location, believes the year is 1999, but does know that she is 59 years old and knows her birthdate and is eventually able to mathematically calculate that the year is 2019 and is accurate about the current president. No CP or SOB. Feeling stronger, worked with PT, home with home health and f/u with [facility]. Consults: Cardiology, Psychiatry Problem list: Acute encephalopathy - likely metabolic from recent psych medication change. Will check depakote level, consult psych, monitor for hypoglycemia Elevated troponin - likely demand ischemia, will consult cardiology, trend troponins Cough - mild COPD exacerbation, nebs Weakness - will have PT to see PTSD with Anxiety and possible dx of bipolar disorder - check depakote level, reconcile meds with [facility] including depakote and zyprexa Asthma with COPD - nebulizers Liver disease (suspected cirrhosis) secondary to NAJERA - norah give lactulose, check ammonia level Obesity s/p gastric bypass - will check B12, D DM2 - sliding scale HLD - cont statin HTN - cont home meds JOSE on CPAP - will get home device GERD - PPI h/o TBI - per [facility] records, unknown mental baseline Peripheral neuropathy - gabapentin OA - avoid narcotics Vitamin D deficiency - on oral replacement Greater than 30 minutes spent on d/c home with home health Discharge Information Condition at Discharge: Improved Follow Up: Weeks Disposition/Orders: D/C to Home w/ HH Scheduled Aripiprazole (Abilify) 10 Mg Tablet, 1 TAB PO QHS for bipolar for 30 Days, #30 Ref 0 (Reported) Entered as Reported by: KRYSTA MCALLISTER on 01/15/201556 Last Taken: Unknown Dose on Unknown Date & Time Last Action: Reviewed on 01/15/201558 by KRYSTA MCALLISTER Aspirin (Aspirin) 81 Mg Tab.chew, 1 TAB PO DAILY for prophylaxis , #30 Ref 3 (R eported) Entered as Reported by: KRYSTA MCALLISTER on 01/15/201556 Last Taken: Unknown Dose on Unknown Date & Time Last Action: Reviewed on 01/15/201558 by KRYSTA MCALLISTER Cholecalciferol (Vitamin D3) (Vitamin D3) 125 Mcg Capsule, 5,000 UNIT PO DAILY for Vitamin D deficiency for 90 Days, #90 Prescribed by: MICHAEL RAI MD on 01/15/20 1601 Clonazepam (Clonazepam) 1 Mg Tablet, 0.5 MG PO QHS for FOR ANXIETY, (Reported) Entered as Reported by: KRYSTA MCALLISTER on 01/15/201556 Last Taken: Unknown Dose on Unknown Date & Time Last Action: Reviewed on 01/15/201558 by KRYSAT MCALLISTER Divalproex Sodium (Divalproex Sodium) 500 Mg Tablet.dr, 3 TAB PO QHS for mood stablizer, #60 Ref 1 (Reported) Entered as Reported by: KRYSTA MCALLISTER on 01/15/201556 Last Taken: Unknown Dose on Unknown Date & Time Last Action: Reviewed on 01/15/201558 by KRYSTA MCALLISTER Fluoxetine Hcl (Fluoxetine Hcl) 40 Mg Capsule, 1 CAP PO DAILYWBKFT for mood stablizer, #30 Ref 2 (Reported) Entered as Reported by: KRYSTA MCALLISTER on 01/15/201556 Last Taken: Unknown Dose on Unknown Date & Time Last Action: Reviewed on 01/15/201558 by KRYSTA MCALLISTER Fluticasone Propionate (Fluticasone Propionate Nasal [place]) 16 Gm [place].susp, 2 SPRAY NS DAILY for congestion, #1 Ref 11 (Reported) Entered as Reported by: KRYSTA MCALLISTER on 01/15/201556 Last Taken: Unknown Dose on Unknown Date & Time Last Action: Reviewed on 01/15/201558 by KRYSTA MCALLISTER Gabapentin (Gabapentin) 600 Mg Tablet, 600 MG PO TID for NEUROGENIC PAIN, (Reported) Entered as Reported by: KRYSTA MCALLISTER on 01/15/201556 Last Taken: Unknown Dose on Unknown Date & Time Last Action: Reviewed on 01/15/201558 by KRYSTA MCALLISTER Haloperidol Decanoate (Haloperidol Decanoate) 100 Mg/1 Ml Vial, 150 MG IM Q4WK for mood stabilizer, (Reported) Entered as Reported by: KRYSTA MCALLISTER on 01/15/201557 Last Taken: Unknown Dose on Unknown Date & Time Last Action: Reviewed on 01/15/201558 by KRYSTA MCALLISTER Insulin Degludec (Tresiba) 100 Unit/1 Ml Vial, 8 UNIT SQ DAILY for DM, (Reported ) Entered as Reported by: KRYSTA MCALLISTER on 01/15/201556 Last Taken: Unknown Dose on Unknown Date & Time Last Action: Reviewed on 01/15/201558 by KRYSTA MCALLISTER Metoprolol Succinate (Toprol XL) 50 Mg Tab.er.24h, 25 MG PO DAILY for FOR HYPERTENSION, (Reported) Entered as Reported by: KRYSTA MCALLISTER on 01/15/201556 Last Taken: Unknown Dose on Unknown Date & Time Last Action: Reviewed on 01/15/201558 by KRYSTA MCALLISTER Pantoprazole Sodium (Protonix) 20 Mg Tablet.dr, 2 TAB PO DAILY for GERD, #30 (Reported) Entered as Reported by: KRYSTA MCALLISTER on 01/15/201556 Last Taken: Unknown Dose on Unknown Date & Time Last Action: Reviewed on 01/15/201558 by KRYSTA MCALLISTER Pramipexole Di-Hcl (Mirapex) 0.25 Mg Tablet, 2 TAB PO QEVNG for parkinsons/tremors, #90 Ref 1 (Reported) Entered as Reported by: KRYSTA MCALLISTER on 01/15/201556 Last Taken: Unknown Dose on Unknown Date & Time Last Action: Reviewed on 01/15/201558 by KRYSTA MCALLISTER Pramipexole Di-Hcl (Mirapex) 0.25 Mg Tablet, 2 TAB PO QHS for tremors, #90 Ref 1 (Reported) Entered as Reported by: KRYSTA MCALLISTER on 01/15/201556 Last Taken: Unknown Dose on Unknown Date & Time Last Action: Reviewed on 01/15/201558 by KRYSTA MCALLISTER Trazodone Hcl (Trazodone Hcl) 50 Mg Tablet, 1 TAB PO QHS for insomnia, #30 Ref 1 (Reported) Entered as Reported by: KRYSTA MCALLISTER on 01/15/201556 Last Taken: Unknown Dose on Unknown Date & Time Last Action: Reviewed on 01/15/201558 by KRYSTA MCALLISTER Trihexyphenidyl Hcl (Trihexyphenidyl Hcl) 5 Mg Tablet, 1 TAB PO BID for d, #60 Ref 1 (Reported) Entered as Reported by: KRYSTA MCALLISTER on 01/15/201556 Last Taken: Unknown Dose on Unknown Date & Time Last Action: Reviewed on 01/15/201558 by KRYSTA MCALLISTER Valbenazine Tosylate (Ingrezza) 40 Mg Capsule, 1 CAP PO DAILY for VMAT2 for 30 Days, #30 Ref 0 (Reported) Entered as Reported by: KRYSTA MCALLISTER on 01/15/201556 Last Taken: Unknown Dose on Unknown Date & Time Last Action: Reviewed on 01/15/201558 by KRYSTA MCALLISTER Scheduled PRN Albuterol Sulfate (Proair Hfa Inhaler) 8.5 Gm Hfa.aer.ad, 2 PUFF IH PRN Q6HRS PRN for wheezing for 21 Days, #1 Ref 0 (Reported) Entered as Reported by: KRYSTA MCALLISTER on 01/15/201556 Last Taken: Unknown Dose on Unknown Date & Time Last Action: Reviewed on 01/15/201558 by KRYSTA MCALLISTER Bismuth Subsalicylate (Pepto-Bismol) 262 Mg Tab.chew, 262 MG PO PRN Q4HRS PRN for diarrhea/nausea, (Reported) Entered as Reported by: KRYSTA MCALLISTER on 01/15/201556 Last Taken: Unknown Dose on Unknown Date & Time Last Action: Reviewed on 01/15/201558 by KRYSTA MCALLISTER Diclofenac Sodium (Voltaren) 100 Gm Gel..gram., 1 GM TP PRN DAILY PRN for PAIN for 30 Days, #1 Ref 0 (Reported) apply to affected area(s) Entered as Reported by: KRYSTA MCALLISTER on 01/15/201556 Last Taken: Unknown Dose on Unknown Date & Time Last Action: Reviewed on 01/15/201558 by KRYSTA MCALLISTER Diclofenac Sodium (Diclofenac Sodium) 150 Ml Drops, 4 ROSEMARY TP PRN QHS PRN for PAIN for 30 Days, #150 Ref 0 (Reported) Entered as Reported by: KRYSTA MCALLISTER on 01/15/201556 Last Taken: Unknown Dose on Unknown Date & Time Last Action: Reviewed on 01/15/201558 by KRYSTA MCALLISTER Diclofenac Sodium (Voltaren) 100 Gm Gel..gram., 4 GM TP PRN QHS PRN for PAIN for 30 Days, #1 Ref 0 (Reported) apply to affected area(s) Entered as Reported by: KRYSTA MCALLISTER on 01/15/201556 Last Action: Reviewed on 01/15/201558 by KRYSTA MCALLISTER Hydrocodone Bit/Acetaminophen (Hydrocodone-Apap 5-325 ) 1 Tab Tablet, 1 TAB PO PRN Q6HRS PRN for PAIN, Ref 0 (Reported) Entered as Reported by: KRYSTA MCALLISTER on 01/15/201556 Last Taken: Unknown Dose on Unknown Date & Time Last Action: Reviewed on 01/15/201558 by KRYSTA MCALLISTER Loperamide HCl (Imodium A-D) 2 Mg Capsule, 2 MG PO PRN DAILY PRN for loose stools, (Reported) Entered as Reported by: KRYSTA MCALLISTER on 01/15/201556 Last Taken: Unknown Dose on Unknown Date & Time Last Action: Reviewed on 01/15/201558 by KRYSTA MCALLISTER Loperamide Hcl (Loperamide) 2 Mg Tablet, 1 TAB PO PRN Q2HR PRN for loose stools for 30 Days, Ref 0 (Reported) Entered as Reported by: KRYSTA MCALLISTER on 01/15/201557 Last Taken: Unknown Dose on Unknown Date & Time Last Action: Reviewed on 01/15/201558 by KRYSTA MCALLISTER Ondansetron (Ondansetron Odt) 4 Mg Tab.rapdis, 1 TAB PO PRN Q4-6HRS PRN for NAUSEA, #16 (Reported) Entered as Reported by: KRYSTA MCALLISTER on 01/15/201557 Last Taken: Unknown Dose on Unknown Date & Time Last Action: Reviewed on 01/15/201558 by KRYSTA MCALLISTER Discontinued Medications Baclofen (Baclofen) 10 Mg Tablet, 10 MG PO, (Reported) Entered as Reported by: RAYMUNDO LIMON on 05/04/132025 Last Action: Discontinued on 01/15/201524 by KRYSTA MCALLISTER Esomeprazole Magnesium (Nexium Packet) 10 Mg Suspdr.pkt, 10 MG PO, (Reported) Entered as Reported by: RAYMUNDO LIMON on 05/04/132025 Last Action: Discontinued on 01/15/201524 by KRYSTA MCALLISTER Gabapentin (Gabapentin ) 100 Mg Capsule, 100 MG PO, (Reported) Entered as Reported by: RAYMUNDO LIMON on 05/04/132026 Last Action: Discontinued on 01/15/201524 by KRYSTA MCALLISTER Trazodone Hcl (Trazodone Hcl) 50 Mg Tablet, 50 MG PO, (Reported) Entered as Reported by: RAYMUNDO LIMON on 05/04/132026 Last Action: Discontinued on 01/15/201524 by KRYSTA MCALLISTER Justicifation of Admission Dx: Justifications for Admission: Justification of Admission Dx: N/A MICHAEL RAI MD Jan 15, 2020 16:07
--- NOTE | 2020-01-15 16:44 | NUR ---
SS following up with discharge planning. Discharge orders for home healthcare received. SS met with pt and discussed home healthcare. Pt reported that she is on services with [facility], ; fax [phone]. SS phoned and faxed discharge orders and referral to [facility]. Pt's RN notified.
--- NOTE | 2020-01-15 17:37 | NUR ---
Discharge Note: SEAN LEPE Discharge instructions and discharge home medications reviewed with Patient and a copy given. All questions have been answered and understanding verbalized. Pt home with home health and a patient at the [facility].
[2020-01-15] MEDS ORDERED: ENOXAPARIN 40 MG/0.4 ML SYRINGE. SQ SCH (21:00)
== END 2020-01-15 17:15 | disposition home health service (06) | DRG 190 ==
LOC: ER 19:12 → OBSVTOIN 01-14 01:33 → 2 NORTH 01-14 01:33
PROVIDERS: ADMIT Family Medicine; ATTEND Family Medicine
DX: J44.1 Chronic obstructive pulmonary disease with (acute) exacerbation (principal); G93.41 Metabolic encephalopathy; Z68.41 Body mass index [BMI] 40.0-44.9, adult; I24.8 Other forms of acute ischemic heart disease; I48.92 Unspecified atrial flutter; R53.1 Weakness; M19.90 Unspecified osteoarthritis, unspecified site; K21.9 Gastro-esophageal reflux disease without esophagitis; F41.9 Anxiety disorder, unspecified; Z20.828 Contact with and (suspected) exposure to other viral communicable diseases; E11.9 Type 2 diabetes mellitus without complications; E11.42 Type 2 diabetes mellitus with diabetic polyneuropathy; E78.5 Hyperlipidemia, unspecified; G47.33 Obstructive sleep apnea (adult) (pediatric); I10 Essential (primary) hypertension; E66.9 Obesity, unspecified; K75.81 Nonalcoholic steatohepatitis (NASH); F31.9 Bipolar disorder, unspecified; F43.10 Post-traumatic stress disorder, unspecified; F60.9 Personality disorder, unspecified; E55.9 Vitamin D deficiency, unspecified; K74.60 Unspecified cirrhosis of liver; Z90.710 Acquired absence of both cervix and uterus; Z90.49 Acquired absence of other specified parts of digestive tract; Z88.5 Allergy status to narcotic agent; Z88.2 Allergy status to sulfonamides; Z88.8 Allergy status to other drugs, medicaments and biological substances; Z87.820 Personal history of traumatic brain injury; Z98.84 Bariatric surgery status
CPT/HCPCS: 36415; 51702; 71045; 80048; 80053; 80061; 80164; 81001; 82140; 82306; 82553; 82607; 82962; 83690; 83735; 83880; 84145; 84443; 84484; 85025; 85610; 85730; 87086; 93005; 94640; 99285; J1650; 97116-GP; 97535-GO; G0378; J7626; U0003-CS